=== PATIENT | female | born 1995 | race Caucasian/White ===

== ENCOUNTER 2017-02-08 05:56 | Emergency (ER) | payer OTHER ==
[2017-02-08] MEDS ORDERED: Ketorolac INJ* 30 MG/ML 1 ML VIAL IV ONE (07:51)
[2017-02-08] MEDS ORDERED: Ondansetron INJ* 2 MG/ML VIAL IV ONE (07:51)
[2017-02-08] MEDS ORDERED: NS 0.9% 1000 ML* 2,000 ML IV ONE (07:51)
[2017-02-08 08:33] LABS: Hematocrit 41 % (35-47); Hemoglobin 13.7 g/dl (12.0-16.0); Mean Corpuscular HGB Conc 34 g/dl (31-36); Mean Corpuscular Hemoglobin 29 pg (27-31); Mean Corpuscular Volume 85 fL (80-97); Mean Platelet Volume 8 um3 (7.4-10.4); Red Blood Count 4.76 10^6/ul (4.0-5.4); Red Cell Distribution Width 12 % (10.5-15); White Blood Count 8.4 10^3/ul (3.5-10.8)
[2017-02-08 08:50] LABS: Albumin 4.1 g/dL (3.2-5.2); BUN/Creatinine Ratio 11.1 (8-20); C Reactive Protein 50.22 mg/L (< 5.00); Calcium 9.2 mg/dL (8.6-10.3); EGFR African American 117.1 (>60); EGFR Non-African American 91.1 (>60); Total Bilirubin 0.3 mg/dL (0.2-1.0); Total Protein 7.1 g/dL (6.4-8.9)
[2017-02-08 09:00] LABS: Manual Entry Verification MR; Mono Internal Control QC Line Present
[2017-02-08 11:19] VITALS: BP 127/63
--- NOTE | 2017-02-08 15:53 | ED ---
Wade Osborne Auryana, scribed for Jose Pérez MD on 02/08/17 at 1005 . Headache - HPI Summary HPI Summary: 21 year old female presents with headache, body aches, and increased fatigue starting a few days ago. She also has chills, sore throat, neck pain, cold sweats at night, and difficulty with BM for the last few weeks. She states a relatively normal appetite. She denies cough, pain with swallowing, rashes, fever, or any trouble with urination. 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 She denies being sick recently and states that her friend has [place] currently but that she has not been around her or any one else that is sick. She denies a tonsillectomy. PMHx is unremarkable. She denies any tobacco or alcohol use. - History Of Current Complaint Chief Complaint: EDHeadache Stated Complaint: FEVER/HEADACHE/BODY ACHES Time Seen by Provider: 02/08/17 07:45 Hx Obtained From: Patient Onset/Duration: Gradual Onset, Started days ago - few days ago, Still Present Initially Headache Was: Mild Currently Pain Is: Mild Timing: Constant Location of Headache: Diffuse Allevating Factors: Medication - ibuprofen Associated Signs And Symptoms: Other (Noted In Comments) - see HPI - Allergies/Home Medications Allergies/Adverse Reactions: Allergies Allergy/AdvReac Type Severity Reaction Status Date / Time No Known Allergies Allergy Verified 02/08/17 06:06 PMH/Surg Hx/FS Hx/Imm Hx Musculoskeletal History: Reports: Hx Orthopedic Injury - right ankle - Immunization History Date of Tetanus Vaccine: utd Date of Influenza Vaccine: none Infectious Disease History: No Infectious Disease History: Denies: Traveled Outside the [place] in Last 30 Days - Family History Known Family History: Negative: Seizure Disorder - Social History Occupation: Student Lives: Alone Alcohol Use: Occasionally Substance Use Type: Reports: None Smoking Status (MU): Former Smoker Review of Systems Positive: Chills - with cold sweats at night , Fatigue - increased. Negative: Fever Eyes: Negative Positive: Sore Throat Cardiovascular: Negative Respiratory: Negative Negative: Cough Positive: Other - trouble with BM in the last few weeks Genitourinary: Negative Positive: no symptoms reported. Negative: dysuria Positive: Myalgia - diffuse, Other - neck pain Skin: Negative Negative: Rash Neurological: Negative Psychological: Normal All Other Systems Reviewed And Are Negative: Yes Physical Exam - Summary Physical Exam Summary: The patient is well-nourished in no acute distress and in no acute pain. Ambulates without difficulty. The skin is warm and dry and skin color reflects adequate perfusion. Good Skin turgor. HEENT: The head is normocephalic and atraumatic. The pupils are equal and reactive - EOMI. The conjunctivae are clear and without drainage. Nares are patent and without drainage. Mouth reveals moist mucous membranes and the throat is without exudate but some erythema. The external ears are intact. The ear canals are patent and without drainage. The tympanic membranes are intact. No enlarged tonsils. NO sinus tenderness to palpation. Neck is supple with full range of motion and non-tender. There are no carotid bruits. There is no neck vein distension. Posterior cervical lymphadenopathy and some left anterior lymphadenopathy. No nuchal rigidity and no pain with palpation. Respiratory: Chest is non-tender. Lungs are clear to auscultation and breath sounds are symmetrical and equal. Cardiovascular: Heart is tachycardic. There is no murmur or rub auscultated. There is no peripheral edema and pulses are symmetrical and equal. Good capillary refill. Abdomen: The abdomen is soft and non-tender. There are normal bowel sounds heard in all four quadrants and there is no organomegaly palpated. Musculoskeletal: There is no back pain noted. Extremities are non-tender with full range of motion. There is good capillary refill. There is no peripheral edema or calf tenderness elicited. Neurological: Patient is alert and oriented to person, place and time. The patient has symmetrical motor strength in all four extremities. Cranial nerves are grossly intact. Deep tendon reflexes are symmetrical and equal in all four extremities. Psychiatric: The patient has an appropriate affect and does not exhibit any anxiety or depression. Triage Information Reviewed: Yes Vital Signs On Initial Exam: Initial Vitals Temp Pulse Resp BP Pulse Ox 99 F 108 18 100/88 96 02/08/17 06:04 02/08/17 06:04 02/08/17 06:04 02/08/17 06:04 02/08/17 06:04 Vital Signs Reviewed: Yes - [place] Coma Scale Coma Scale Total: 15 Diagnostics - Vital Signs Vital Signs Temp Pulse Resp BP Pulse Ox 02/08/17 06:05 99 F 108 18 100/88 96 02/08/17 06:04 99 F 108 18 100/88 96 - Laboratory Lab Results: Lab Results 02/08/17 02/08/17 02/08/17 Range/Units 08:15 08:15 08:15 WBC 8.4 (3.5-10.8) 10^3/ul RBC 4.76 (4.0-5.4) 10^6/ul Hgb 13.7 (12.0-16.0) g/dl Hct 41 (35-47) % MCV 85 (80-97) fL MCH 29 (27-31) pg MCHC 34 (31-36) g/dl RDW 12 (10.5-15) % Plt Count 209 (150-450) 10^3/ul MPV 8 (7.4-10.4) um3 Neut % (Auto) 79.7 (38-83) % Lymph % (Auto) 6.0 L (25-47) % [place] % (Auto) 13.4 H (1-9) % Eos % (Auto) 0.4 (0-6) % Baso % (Auto) 0.5 (0-2) % Absolute Neuts (auto) 6.7 (1.5-7.7) 10^3/ul Absolute Lymphs (auto) 0.5 L (1.0-4.8) 10^3/ul Absolute Monos (auto) 1.1 H (0-0.8) 10^3/ul Absolute Eos (auto) 0 (0-0.6) 10^3/ul Absolute Basos (auto) 0 (0-0.2) 10^3/ul Absolute Nucleated RBC 0.01 10^3/ul Nucleated RBC % 0.1 INR (Anticoag Therapy) 0.94 (0.89-1.11) Sodium 135 (133-145) mmol/L Potassium 4.0 (3.5-5.0) mmol/L Chloride 104 (101-111) mmol/L Carbon Dioxide 25 (22-32) mmol/L Anion Gap 6 (2-11) mmol/L BUN 9 (6-24) mg/dL Creatinine 0.81 (0.51-0.95) mg/dL Est GFR ( Amer) 117.1 (>60) Est GFR (Non-Af Amer) 91.1 (>60) BUN/Creatinine Ratio 11.1 (8-20) Glucose 93 (70-100) mg/dL Lactic Acid (0.5-2.0) mmol/L Calcium 9.2 (8.6-10.3) mg/dL Total Bilirubin 0.30 (0.2-1.0) mg/dL AST 22 (13-39) U/L ALT 16 (7-52) U/L Alkaline Phosphatase 38 (34-104) U/L C-Reactive Protein 50.22 H (< 5.00) mg/L Total Protein 7.1 (6.4-8.9) g/dL Albumin 4.1 (3.2-5.2) g/dL Globulin 3.0 (2-4) g/dL Albumin/Globulin Ratio 1.4 (1-3) Monoscreen Negative (Negative) Group A Strep Rapid (Negative) 02/08/17 02/08/17 Range/Units 08:15 09:48 WBC (3.5-10.8) 10^3/ul RBC (4.0-5.4) 10^6/ul Hgb (12.0-16.0) g/dl Hct (35-47) % MCV (80-97) fL MCH (27-31) pg MCHC (31-36) g/dl RDW (10.5-15) % Plt Count (150-450) 10^3/ul MPV (7.4-10.4) um3 Neut % (Auto) (38-83) % Lymph % (Auto) (25-47) % [place] % (Auto) (1-9) % Eos % (Auto) (0-6) % Baso % (Auto) (0-2) % Absolute Neuts (auto) (1.5-7.7) 10^3/ul Absolute Lymphs (auto) (1.0-4.8) 10^3/ul Absolute Monos (auto) (0-0.8) 10^3/ul Absolute Eos (auto) (0-0.6) 10^3/ul Absolute Basos (auto) (0-0.2) 10^3/ul Absolute Nucleated RBC 10^3/ul Nucleated RBC % INR (Anticoag Therapy) (0.89-1.11) Sodium (133-145) mmol/L Potassium (3.5-5.0) mmol/L Chloride (101-111) mmol/L Carbon Dioxide (22-32) mmol/L Anion Gap (2-11) mmol/L BUN (6-24) mg/dL Creatinine (0.51-0.95) mg/dL Est GFR ( Amer) (>60) Est GFR (Non-Af Amer) (>60) BUN/Creatinine Ratio (8-20) Glucose (70-100) mg/dL Lactic Acid 0.5 (0.5-2.0) mmol/L Calcium (8.6-10.3) mg/dL Total Bilirubin (0.2-1.0) mg/dL AST (13-39) U/L ALT (7-52) U/L Alkaline Phosphatase (34-104) U/L C-Reactive Protein (< 5.00) mg/L Total Protein (6.4-8.9) g/dL Albumin (3.2-5.2) g/dL Globulin (2-4) g/dL Albumin/Globulin Ratio (1-3) Monoscreen (Negative) Group A Strep Rapid Negative (Negative) Result Diagrams: 02/08/17 08:15 02/08/17 08:15 Lab Statement: Any lab studies that have been ordered have been reviewed, and results considered in the medical decision making process. Re-Evaluation - Re-Evaluation First Eval Re-Evaluation Time: 10:54 - discuss lab results and negative mono and strep swab Change: Improved Comment: patient aggreable with discharge plan Headache Course/Dx - Course Assessment/Plan: A 21-year-old female presents to the ED with a CC of headache and body aches starting a few days ago. She also has neck pain, sore throat, and chills, but denies fever, cough, trouble swallowing or any rashes. LABS: unremarkable. RAPID STREP: negative. MONO SWAB: negative. Will discharge patient home with diagnosis of viral syndrome and recommend fluids, rest, and to follow up with [facility] if her symptoms do not improve or if they worsen. - Diagnoses Differential Diagnosis/HQI/PQRI: Sinus Headache, Viral Syndrome, Other - strept throat, mono Provider Diagnoses: Viral syndrome Discharge - Discharge Plan Condition: Stable Disposition: HOME Patient Education Materials: Viral Syndrome (ED) Referrals: [facility] [Primary Care Provider] - If Needed (FOLLOW UP IF YOUR SYMPTOMS DO NOT IMPROVE OR WORSEN.) Additional Instructions: ADVISED TO REST AND TO DRINK PLENTY OF FLUIDS The documentation as recorded by the Wade enriquez Auryana accurately reflects the service I personally performed and the decisions made by me, Jose Pérez MD.
== END 2017-02-08 11:17 | disposition home or self-care (01) ==
LOC: ED 05:56
DX: B34.9 Viral infection, unspecified (principal); Z87.891 Personal history of nicotine dependence
CPT/HCPCS: 36415; 80053; 83605; 85025; 85610; 86140; 86308; 87651; 96360; 96374; 96375; 99283; J1885; J2405

== ENCOUNTER 2017-02-11 20:58 | Emergency (ER) | payer OTHER ==
[2017-02-11 23:40] LABS: Hematocrit 42 % (35-47); Hemoglobin 13.7 g/dl (12.0-16.0); Mean Corpuscular HGB Conc 33 g/dl (31-36); Mean Corpuscular Hemoglobin 28 pg (27-31); Mean Corpuscular Volume 86 fL (80-97); Mean Platelet Volume 8 um3 (7.4-10.4); Red Blood Count 4.87 10^6/ul (4.0-5.4); Red Cell Distribution Width 12 % (10.5-15); White Blood Count 5.3 10^3/ul (3.5-10.8)
[2017-02-12 00:04] LABS: BUN/Creatinine Ratio 11.2 (8-20); C Reactive Protein 54.2 mg/L (< 5.00); Calcium 8.9 mg/dL (8.6-10.3); EGFR African American 105.1 (>60); EGFR Non-African American 81.7 (>60); Globulin 3.3 g/dL (2-4); Potassium 3.9 mmol/L (3.5-5.0); Total Bilirubin 0.2 mg/dL (0.2-1.0); Total Protein 7.3 g/dL (6.4-8.9)
--- NOTE | 2017-02-12 00:05 | ED ---
Influenza-Like Illness - HPI Summary HPI Summary: Patient was seen at this ED three days ago for fever and diagnosed with viral illness after negative acute findings. She followed-up at [facility] today with Dr. Vera Rai and it was confirmed that viral illness was the consistent finding. She comes in today with her boyfriend after an episode of tingling in her right arm that resolved spontaneously. She is treating her fever and cough with OTC medication with good relief. She denies neck stiffness, KRAFT, or mental status changes. - History of Current Complaint Chief Complaint: EDGeneral Time Seen by Provider: 02/11/17 22:22 Hx Obtained From: Patient Onset/Duration: Gradual Onset Severity: Mild Associated Signs & Symptoms: Cough, Sore Throat Related Hx: Possible Flu/Infectious Exposure - Allergy/Home Medications Allergies/Adverse Reactions: Allergies Allergy/AdvReac Type Severity Reaction Status Date / Time No Known Allergies Allergy Verified 02/08/17 06:06 PMH/Surg Hx/FS Hx/Imm Hx Musculoskeletal History: Reports: Hx Orthopedic Injury - right ankle - Immunization History Date of Tetanus Vaccine: utd Date of Influenza Vaccine: none Infectious Disease History: No Infectious Disease History: Denies: Traveled Outside the [place] in Last 30 Days - Family History Known Family History: Positive: None Negative: Seizure Disorder - Social History Occupation: Student Lives: With Family Alcohol Use: Occasionally Substance Use Type: Reports: None Smoking Status (MU): Former Smoker Review of Systems Positive: Fever Positive: Nasal Discharge Positive: Cough Positive: Myalgia All Other Systems Reviewed And Are Negative: Yes Physical Exam Triage Information Reviewed: Yes Vital Signs On Initial Exam: Initial Vitals Temp Pulse Resp BP Pulse Ox 98.9 F 84 18 133/74 100 02/11/17 21:14 02/11/17 21:14 02/11/17 21:14 02/11/17 21:14 02/11/17 21:14 Vital Signs Reviewed: Yes Appearance: Positive: Well-Appearing, No Pain Distress, Well-Nourished Skin: Positive: Warm, Skin Color Reflects Adequate Perfusion, Dry, Soft Head/Face: Positive: Normal Head/Face Inspection Eyes: Positive: EOMI, LEVA, Conjunctiva Clear ENT: Positive: Hearing grossly normal, Pharynx normal, TMs normal Neck: Positive: Supple, Nontender, No Lymphadenopathy Respiratory/Lung Sounds: Positive: Clear to Auscultation, Breath Sounds Present Cardiovascular: Positive: RRR Abdomen Description: Positive: Nontender, Soft. Negative: CVA Tenderness (R), CVA Tenderness (L) Bowel Sounds: Positive: Present Musculoskeletal: Negative: Edema Left Neurological: Positive: Sensory/Motor Intact, Alert, Oriented to Person Place, Time, [place] Bundle Intact Distally, Normal Gait Psychiatric: Positive: Affect/Mood Appropriate AVPU Assessment: Alert - [place] Coma Scale Coma Scale Total: 15 Diagnostics - Vital Signs Vital Signs Temp Pulse Resp BP Pulse Ox 02/11/17 21:54 98.8 F 78 18 122/81 99 02/11/17 21:14 98.9 F 84 18 133/74 100 - Laboratory Lab Results: Lab Results 02/11/17 02/11/17 Range/Units 23:30 23:35 WBC 5.3 (3.5-10.8) 10^3/ul RBC 4.87 (4.0-5.4) 10^6/ul Hgb 13.7 (12.0-16.0) g/dl Hct 42 (35-47) % MCV 86 (80-97) fL MCH 28 (27-31) pg MCHC 33 (31-36) g/dl RDW 12 (10.5-15) % Plt Count 215 (150-450) 10^3/ul MPV 8 (7.4-10.4) um3 Neut % (Auto) 52.5 (38-83) % Lymph % (Auto) 29.4 (25-47) % [place] % (Auto) 16.4 H (1-9) % Eos % (Auto) 1.5 (0-6) % Baso % (Auto) 0.2 (0-2) % Absolute Neuts (auto) 2.8 (1.5-7.7) 10^3/ul Absolute Lymphs (auto) 1.5 (1.0-4.8) 10^3/ul Absolute Monos (auto) 0.9 H (0-0.8) 10^3/ul Absolute Eos (auto) 0.1 (0-0.6) 10^3/ul Absolute Basos (auto) 0 (0-0.2) 10^3/ul Absolute Nucleated RBC 0 10^3/ul Nucleated RBC % 0 Influenza A (Rapid) Negative (Negative) Influenza B (Rapid) Negative (Negative) Result Diagrams: 02/11/17 23:30 02/11/17 23:30 Lab Statement: Any lab studies that have been ordered have been reviewed, and results considered in the medical decision making process. Flu Symptom Course/Dx - Diagnoses Differential Diagnosis/HQI/PQRI: Positive: Bronchitis, Broncholiolitis, Influenza, Pneumonia, Upper Respiratory Infection, Other Provider Diagnoses: Viral illness Discharge - Discharge Plan Condition: Stable Disposition: HOME Patient Education Materials: Viral Syndrome (ED) [facility] - Additional Instructions: Please drink extra fluids and get plenty of rest. With a fever you are more susceptible to dehydration. Use ibuprofen and tylenol consistently to keep your fever down. Follow[facility]up with [facility] if symptoms persist. Return to the emergency department if symptoms worsen.
[2017-02-12 00:23] LABS: Urine Bacteria 1+ (Absent); Urine Bilirubin Negative (Negative); Urine Glucose Negative (Negative); Urine Nitrite Negative (Negative)
[2017-02-12 00:50] VITALS: BP 136/78
== END 2017-02-12 00:50 | disposition home or self-care (01) ==
LOC: ED 20:58
DX: B34.9 Viral infection, unspecified (principal); R50.9 Fever, unspecified; R05 Cough; Z87.891 Personal history of nicotine dependence
CPT/HCPCS: 36415; 80053; 81003; 81015; 85025; 86140; 87086; 87502; 99282